=== PATIENT | male | born 1980 | race American Indian/Alaskan Native ===

== ENCOUNTER 2017-05-25 09:11 | Emergency (ER) | payer MEDICAID ==
[2017-05-25 09:22] VITALS: BP 157/96
--- NOTE | 2017-05-25 09:48 | Emergency Department Report ---
ED Psych HPI - General Chief Complaint: Psych Stated Complaint: EXCESSIVE SWEATING Time Seen by Provider: 05/25/17 09:46 Source: patient Mode of arrival: Ambulatory - History of Present Illness Initial Comments: Patient is a 36-year-old male who presents with excessive sweating. Patient states that he was walking and he got really hot. He also states that he has been having some difficulty maintaining an erection. Patient's symptoms are worse with exertion and with elevated temperature outside. They are better with rest and cold temperatures. Onset of patient's symptoms was gradual. Patient denies having any suicidal or homicidal ideation. Patient admits to hearing voices but he states that he always hears voices. ED Review of Systems ROS: Stated complaint: EXCESSIVE SWEATING Other details as noted in HPI Constitutional: denies: chills, fever Eyes: denies: eye pain, eye discharge, vision change ENT: denies: ear pain, throat pain Respiratory: denies: cough, shortness of breath, wheezing Cardiovascular: denies: chest pain, palpitations Endocrine: no symptoms reported Gastrointestinal: denies: abdominal pain, nausea, diarrhea Genitourinary: denies: urgency, dysuria Musculoskeletal: denies: back pain, joint swelling, arthralgia Skin: denies: rash, lesions Neurological: denies: headache, weakness, paresthesias Psychiatric: denies: anxiety, depression, auditory hallucinations, suicidal thoughts Hematological/Lymphatic: denies: easy bleeding, easy bruising ED Past Medical Hx - Past Medical History Previous Medical History?: Yes Hx Hypertension: Yes Additional medical history: Pt is poor historian. - Surgical History Past Surgical History?: No ED Physical Exam - General Limitations: No Limitations, Other General appearance: alert, in no apparent distress - Head Head exam: Present: atraumatic, normocephalic - Eye Eye exam: Present: normal appearance - ENT ENT exam: Present: mucous membranes moist - Neck Neck exam: Present: normal inspection - Respiratory Respiratory exam: Present: normal lung sounds bilaterally. Absent: respiratory distress - Cardiovascular Cardiovascular Exam: Present: regular rate, normal rhythm. Absent: systolic murmur, diastolic murmur, rubs, gallop - GI/Abdominal GI/Abdominal exam: Present: soft, normal bowel sounds - Rectal Rectal exam: Present: deferred - Extremities Exam Extremities exam: Present: normal inspection - Back Exam Back exam: Present: normal inspection - Neurological Exam Neurological exam: Present: alert, oriented X3, CN II-XII intact - Psychiatric Psychiatric exam: Present: anxious, flat affect. Absent: homicidal ideation, suicidal ideation - Skin Skin exam: Present: warm, dry, intact, normal color. Absent: rash ED Course Vital Signs 05/25/17 09:16 Temperature 98.0 F Pulse Rate 95 H Respiratory 20 Rate Blood Pressure 157/96 O2 Sat by Pulse 100 Oximetry - Reevaluation(s) Reevaluation #1: 05/25/17 13:52 Reevaluated patient he states he is ED Medical Decision Making - Lab Data Result diagrams: 05/25/17 09:57 05/25/17 09:57 Lab Results 05/25/17 05/25/17 05/25/17 Range/Units 09:57 09:57 09:57 WBC 12.7 H (4.5-11.0) K/mm3 RBC 5.52 H (3.65-5.03) M/mm3 Hgb 17.6 H (11.8-15.2) gm/dl Hct 52.6 H (35.5-45.6) % MCV 95 H (84-94) fl MCH 32 (28-32) pg MCHC 33 (32-34) % RDW 15.0 (13.2-15.2) % Plt Count 228 (140-440) K/mm3 Lymph % (Auto) 17.4 (13.4-35.0) % [place] % (Auto) 8.1 H (0.0-7.3) % Eos % (Auto) 1.9 (0.0-4.3) % Baso % (Auto) 0.6 (0.0-1.8) % Lymph # 2.2 (1.2-5.4) K/mm3 [place] # 1.0 H (0.0-0.8) K/mm3 Eos # 0.2 (0.0-0.4) K/mm3 Baso # 0.1 (0.0-0.1) K/mm3 Seg Neutrophils % 72.0 H (40.0-70.0) % Seg Neutrophils # 9.1 H (1.8-7.7) K/mm3 Sodium 142 (137-145) mmol/L Potassium 4.1 (3.6-5.0) mmol/L Chloride 103.0 (98-107) mmol/L Carbon Dioxide 28 (22-30) mmol/L Anion Gap 15 mmol/L BUN 7 L (9-20) mg/dL Creatinine 0.6 L (0.8-1.5) mg/dL Estimated GFR > 60 ml/min BUN/Creatinine Ratio 11.66 % Glucose 99 (75-100) mg/dL Calcium 9.5 (8.4-10.2) mg/dL Total Bilirubin 0.80 (0.1-1.2) mg/dL AST 17 (5-40) units/L ALT 9 (7-56) units/L Alkaline Phosphatase 93 (35-129) units/L Total Protein 8.2 (6.3-8.2) g/dL Albumin 4.3 (3.9-5) g/dL Albumin/Globulin Ratio 1.1 % TSH 0.673 (0.270-4.200) mlU/mL Urine Color (Yellow) Urine Turbidity (Clear) Urine pH (5.0-7.0) Ur Specific [place] (1.003-1.030) Urine Protein (Negative) mg/dL Urine Glucose (UA) (Negative) mg/dL Urine Ketones (Negative) mg/dL Urine Blood (Negative) Urine Nitrite (Negative) Urine Bilirubin (Negative) Urine Urobilinogen (<2.0) mg/dL Ur Leukocyte Esterase (Negative) Urine WBC (Auto) (0.0-6.0) /HPF Urine RBC (Auto) (0.0-6.0) /HPF U Epithel Cells (Auto) (0-13.0) /HPF Urine Bacteria (Auto) (Negative) /HPF Urine Mucus /HPF Salicylates (2.8-20.0) mg/dL Urine Opiates Screen Urine Methadone Screen Acetaminophen (10.0-30.0) ug/mL Ur Barbiturates Screen Ur Phencyclidine Scrn Ur Amphetamines Screen U Benzodiazepines Scrn Urine Cocaine Screen U Marijuana (THC) Screen Drugs of Abuse Note Plasma/Serum Alcohol (0-0.07) gm% 05/25/17 05/25/17 05/25/17 Range/Units 09:57 09:57 09:57 WBC (4.5-11.0) K/mm3 RBC (3.65-5.03) M/mm3 Hgb (11.8-15.2) gm/dl Hct (35.5-45.6) % MCV (84-94) fl MCH (28-32) pg MCHC (32-34) % RDW (13.2-15.2) % Plt Count (140-440) K/mm3 Lymph % (Auto) (13.4-35.0) % [place] % (Auto) (0.0-7.3) % Eos % (Auto) (0.0-4.3) % Baso % (Auto) (0.0-1.8) % Lymph # (1.2-5.4) K/mm3 [place] # (0.0-0.8) K/mm3 Eos # (0.0-0.4) K/mm3 Baso # (0.0-0.1) K/mm3 Seg Neutrophils % (40.0-70.0) % Seg Neutrophils # (1.8-7.7) K/mm3 Sodium (137-145) mmol/L Potassium (3.6-5.0) mmol/L Chloride (98-107) mmol/L Carbon Dioxide (22-30) mmol/L Anion Gap mmol/L BUN (9-20) mg/dL Creatinine (0.8-1.5) mg/dL Estimated GFR ml/min BUN/Creatinine Ratio % Glucose (75-100) mg/dL Calcium (8.4-10.2) mg/dL Total Bilirubin (0.1-1.2) mg/dL AST (5-40) units/L ALT (7-56) units/L Alkaline Phosphatase (35-129) units/L Total Protein (6.3-8.2) g/dL Albumin (3.9-5) g/dL Albumin/Globulin Ratio % TSH (0.270-4.200) mlU/mL Urine Color (Yellow) Urine Turbidity (Clear) Urine pH (5.0-7.0) Ur Specific [place] (1.003-1.030) Urine Protein (Negative) mg/dL Urine Glucose (UA) (Negative) mg/dL Urine Ketones (Negative) mg/dL Urine Blood (Negative) Urine Nitrite (Negative) Urine Bilirubin (Negative) Urine Urobilinogen (<2.0) mg/dL Ur Leukocyte Esterase (Negative) Urine WBC (Auto) (0.0-6.0) /HPF Urine RBC (Auto) (0.0-6.0) /HPF U Epithel Cells (Auto) (0-13.0) /HPF Urine Bacteria (Auto) (Negative) /HPF Urine Mucus /HPF Salicylates < 0.3 L (2.8-20.0) mg/dL Urine Opiates Screen Urine Methadone Screen Acetaminophen < 15.0 (10.0-30.0) ug/mL Ur Barbiturates Screen Ur Phencyclidine Scrn Ur Amphetamines Screen U Benzodiazepines Scrn Urine Cocaine Screen U Marijuana (THC) Screen Drugs of Abuse Note Plasma/Serum Alcohol < 0.01 (0-0.07) gm% 05/25/17 05/25/17 Range/Units 10:04 10:04 WBC (4.5-11.0) K/mm3 RBC (3.65-5.03) M/mm3 Hgb (11.8-15.2) gm/dl Hct (35.5-45.6) % MCV (84-94) fl MCH (28-32) pg MCHC (32-34) % RDW (13.2-15.2) % Plt Count (140-440) K/mm3 Lymph % (Auto) (13.4-35.0) % [place] % (Auto) (0.0-7.3) % Eos % (Auto) (0.0-4.3) % Baso % (Auto) (0.0-1.8) % Lymph # (1.2-5.4) K/mm3 [place] # (0.0-0.8) K/mm3 Eos # (0.0-0.4) K/mm3 Baso # (0.0-0.1) K/mm3 Seg Neutrophils % (40.0-70.0) % Seg Neutrophils # (1.8-7.7) K/mm3 Sodium (137-145) mmol/L Potassium (3.6-5.0) mmol/L Chloride (98-107) mmol/L Carbon Dioxide (22-30) mmol/L Anion Gap mmol/L BUN (9-20) mg/dL Creatinine (0.8-1.5) mg/dL Estimated GFR ml/min BUN/Creatinine Ratio % Glucose (75-100) mg/dL Calcium (8.4-10.2) mg/dL Total Bilirubin (0.1-1.2) mg/dL AST (5-40) units/L ALT (7-56) units/L Alkaline Phosphatase (35-129) units/L Total Protein (6.3-8.2) g/dL Albumin (3.9-5) g/dL Albumin/Globulin Ratio % TSH (0.270-4.200) mlU/mL Urine Color Yellow (Yellow) Urine Turbidity Clear (Clear) Urine pH 6.0 (5.0-7.0) Ur Specific [place] 1.019 (1.003-1.030) Urine Protein <15 mg/dl (Negative) mg/dL Urine Glucose (UA) Neg (Negative) mg/dL Urine Ketones Tr (Negative) mg/dL Urine Blood Neg (Negative) Urine Nitrite Neg (Negative) Urine Bilirubin Neg (Negative) Urine Urobilinogen 2.0 (<2.0) mg/dL Ur Leukocyte Esterase Neg (Negative) Urine WBC (Auto) 2.0 (0.0-6.0) /HPF Urine RBC (Auto) 4.0 (0.0-6.0) /HPF U Epithel Cells (Auto) < 1.0 (0-13.0) /HPF Urine Bacteria (Auto) 1+ (Negative) /HPF Urine Mucus 3+ /HPF Salicylates (2.8-20.0) mg/dL Urine Opiates Screen Presumptive negative Urine Methadone Screen Presumptive negative Acetaminophen (10.0-30.0) ug/mL Ur Barbiturates Screen Presumptive negative Ur Phencyclidine Scrn Presumptive negative Ur Amphetamines Screen Presumptive negative U Benzodiazepines Scrn Presumptive negative Urine Cocaine Screen Presumptive negative U Marijuana (THC) Screen Presumptive negative Drugs of Abuse Note Disclamer Plasma/Serum Alcohol (0-0.07) gm% - Medical Decision Making Chief medical diagnosis: Anxiety Differential medical diagnosis: Metabolic abnormality, hyperhidrosis I will get CBC, CMP, ethanol and urine drug screen. Patient alone and be evaluated by mental health worker as he is not having any suicidal or homicidal ideation. I will send patient home. Critical care attestation.: If time is entered above; I have spent that time in minutes in the direct care of this critically ill patient, excluding procedure time. ED Disposition Clinical Impression: Hyperhidrosis Disposition: DC-01 TO HOME OR SELFCARE Is pt being admited?: No Does the pt Need Aspirin: No Condition: Stable Instructions: Fatigue (ED), Heat Exhaustion (ED) Referrals: PRIMARY CARE, [Primary Care Provider] - 3-5 Days Time of Disposition: 13:59
[2017-05-25 10:14] LABS: Urine Drugs of Abuse Note Disclamer
[2017-05-25 10:20] LABS: Basophils % (Auto) 0.6 % (0.0-1.8); Eosinophils % (Auto) 1.9 % (0.0-4.3); Hematocrit 52.6 % (35.5-45.6); Hemoglobin 17.6 gm/dl (11.8-15.2); Mean Corpuscular HGB Conc 33 % (32-34); Mean Corpuscular Hemoglobin 32 pg (28-32); Mean Corpuscular Volume 95 fl (84-94); Platelet Count 228 K/mm3 (140-440); Red Blood Count 5.52 M/mm3 (3.65-5.03); White Blood Count 12.7 K/mm3 (4.5-11.0)
[2017-05-25 10:22] LABS: Bacteria,Urine 1+ /HPF (Negative); Bilirubin,Urine NEG (Negative); Blood,Urine NEG (Negative); Ketones,Urine TR mg/dL (Negative); Leukocyte Esterase,Urine NEG (Negative); Mucus,Urine 3+ /HPF; Nitrite,Urine NEG (Negative); Protein,Urine <15 mg/dL mg/dL (Negative)
[2017-05-25 10:36] LABS: Alanine Aminotransferase 9 units/L (7-56); Albumin 4.3 g/dL (3.9-5); Albumin/Globulin Ratio 1.1 %; Alkaline Phosphatase 93 units/L (35-129); Anion Gap 15 mmol/L; BUN/Creatinine Ratio 11.66; Blood Urea Nitrogen 7 mg/dL (9-20); Calcium 9.5 mg/dL (8.4-10.2); Carbon Dioxide 28 mmol/L (22-30); Glucose 99 mg/dL (75-100); Potassium 4.1 mmol/L (3.6-5.0); Sodium 142 mmol/L (137-145); Total Protein 8.2 g/dL (6.3-8.2)
== END 2017-05-25 14:46 | disposition home or self-care (01) ==
LOC: EEVIPCON 09:11 → ED 09:11
DX: R61 Generalized hyperhidrosis (principal); I10 Essential (primary) hypertension
CPT/HCPCS: 36415; 80053; 80307; 81001; 84443; 85025; 99283; G0480; 80320

== ENCOUNTER 2021-03-19 15:06 | Emergency (ER) | payer MEDICAID ==
[2021-03-19 15:37] VITALS: BP 123/81
--- NOTE | 2021-03-20 17:58 | Electrocardiograph Report ---
[facility] Test Date: 2021-03-19 Test Time: 15:32:41 Pat Name: RICHARD SANDERS Department: Room: Gender: M [employer]: JOSE LUIS : 1980 Requested By: VANESSA QUEVEDO Order Number: [id number] Reading MD: Amadeo Maurice Measurements Intervals [place] Rate: 78 P: 54 GA: 176 QRS: 17 QRSD: 73 T: 28 QT: 367 QTc: 419 Interpretive Statements Sinus rhythm Low voltage, precordial leads No previous ECG available for comparison Electronically Signed On 03-20-2021 17:58:15 EDT by Amadeo Maurice
== END 2021-03-19 19:30 | disposition left against medical advice (07) ==
LOC: ED 15:06
DX: R07.9 Chest pain, unspecified (principal); Z53.21 Procedure and treatment not carried out due to patient leaving prior to being seen by health care provider
CPT/HCPCS: 93005

== ENCOUNTER 2021-08-28 15:42 | Emergency (ER) | payer MEDICAID ==
[2021-08-28 18:04] VITALS: BP 161/101
== END 2021-08-29 03:17 | disposition left against medical advice (07) ==
LOC: ED 15:42
DX: M79.606 Pain in leg, unspecified (principal); Z53.21 Procedure and treatment not carried out due to patient leaving prior to being seen by health care provider

== ENCOUNTER 2022-05-22 19:49 | Emergency (ER) | payer MEDICAID ==
[2022-05-23] MEDS ORDERED: NORepinephrine/NS 8 MG-250 ML 8 MG/250 ML INFUS..BTL IV ONE (02:10)
--- NOTE | 2022-05-23 02:37 | XRay Report ---
LEFT XR humerus 2+V LT INDICATION / CLINICAL INFORMATION: left upper arm pain s/p fx COMPARISON: None available. TECHNIQUE: AP and lateral views of the left humerus were acquired. FINDINGS: A transverse minimally comminuted fracture of the mid left humeral diaphysis is present with bony madeleine taqueria formation surrounding the fracture. No pathologic lesions. Approximately 30 degrees of varus angu lation is present. IMPRESSION: 1. A healing fracture of the mid left humeral diaphysis is present. Signer Name: Augusto Valera II, MD Signed: 05/23/2022 2:33 AM Workstation Name: [id number]
--- NOTE | 2022-05-23 03:36 | Emergency Department Report ---
ED General Adult HPI - General Chief complaint: Extremity Injury, Upper Stated complaint: LT ARM PAIN Time Seen by Provider: 05/23/22 01:57 Source: patient, EMS Mode of arrival: Ambulatory Limitations: No Limitations - History of Present Illness Initial comments: Patient 41-year-old male with history of depression and bipolar disease status post left humerus fracture 5 weeks ago. Patient states Velcro on left coaptation splint wore out and he needs a new sling. Patient states he was treated [facility] status post fall injury. Patient denies new fall injury or trauma. However states intermittent left upper arm pain at 5/10. Pain exacerbated by movement and palpation. Pain is relieved by nothing tried. There are no abrasions lacerations or bleeding. - Related Data Previous Rx's Medication Instructions Recorded Last Taken Type Acetaminophen/Codeine [Tylenol 1 tab PO Q6H PRN #12 tab 05/23/22 Unknown Rx /Codeine # 3 tab] Allergies Allergy/AdvReac Type Severity Reaction Status Date / Time No Known Allergies Allergy Verified 03/19/21 15:31 ED Review of Systems ROS: Stated complaint: LT ARM PAIN Other details as noted in HPI Constitutional: denies: chills, fever Eyes: denies: eye pain, eye discharge, vision change ENT: denies: ear pain, throat pain Respiratory: denies: cough, shortness of breath, wheezing Cardiovascular: denies: chest pain, palpitations Endocrine: no symptoms reported Gastrointestinal: denies: abdominal pain, nausea, diarrhea Genitourinary: denies: urgency, dysuria Musculoskeletal: other Skin: denies: rash, lesions Neurological: denies: headache, weakness, paresthesias Psychiatric: denies: anxiety, depression Hematological/Lymphatic: denies: easy bleeding, easy bruising ED Past Medical Hx - Past Medical History Hx Hypertension: Yes Additional medical history: Pt is poor historian. bipolar. paranoid schziophrenia. intermitten explosive behavior. anxiety. repitition of of terroristic threats - Social History Smoking Status: Current Every Day Smoker Substance Use Type: None - Medications Home Medications: Home Medications Medication Instructions Recorded Confirmed Last Taken Type Acetaminophen/Codeine [Tylenol 1 tab PO Q6H PRN #12 tab 05/23/22 Unknown Rx /Codeine # 3 tab] ED Physical Exam - General Limitations: No Limitations General appearance: alert, in no apparent distress - Head Head exam: Present: normocephalic, normal inspection - Eye Eye exam: Present: PERRL, EOMI Pupils: Present: normal accommodation - ENT ENT exam: Present: mucous membranes moist - Neck Neck exam: Present: normal inspection, full ROM. Absent: tenderness, lymphadenopathy - Respiratory Respiratory exam: Present: normal lung sounds bilaterally. Absent: respiratory distress, wheezes - Cardiovascular Cardiovascular Exam: Present: regular rate, normal rhythm, normal heart sounds. Absent: systolic murmur, diastolic murmur, rubs, gallop - GI/Abdominal GI/Abdominal exam: Present: soft, normal bowel sounds. 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 Absent: tenderness Forearm Wrist exam: Present: full ROM. Absent: tenderness Hand Wrist exam: Present: normal inspection, full ROM. Absent: tenderness Neuro motor exam: Present: wrist extension intact, thumb opposition intact, thumb IP flexion intact, thumb adduction intact, fingers 2-5 abduction intact Neurosensory exam: Present: radial nerve intact Vascular: Present: normal capillary refill - Back Exam Back exam: Present: normal inspection, full ROM. Absent: paraspinal tenderness, vertebral tenderness - Neurological Exam Neurological exam: Present: alert, oriented X3, CN II-XII intact, reflexes normal. Absent: motor sensory deficit - Expanded Neurological Exam Expanded Patient oriented to: Present: person, place, time Speech: Present: fluid speech Motor strength exam: RUE: 5, LUE: 5, RLE: 5, LLE: 5 DTR: bicep (R): 1+, bicep (L): 1+ Best Eye Response (Alexandra): (4) open spontaneously Best Motor Response (Alexandra): (6) obeys commands Best Verbal Response (Alexandra): (5) oriented Somis Total: 15 - Psychiatric Psychiatric exam: Present: normal affect, normal mood - Skin Skin exam: Present: warm, dry, intact, normal color. Absent: rash ED Course Vital Signs 05/22/22 05/23/22 20:28 04:53 Temperature 98 F 98 F Pulse Rate 90 85 Respiratory 16 16 Rate Blood Pressure 154/90 140/86 [Right] O2 Sat by Pulse 96 97 Oximetry - Procedure Description Procedures done: Palpitations splint left upper extremity splint check completed at this time spacing is appropriate. Distal pulses remain intact. Sling and swath noted intact pt demonstrate safe used of same. Patient will follow-up with orthopedics in 2 to 3 days. Patient verbalized agreement and understanding with discharge plan. Patient DC'd home in stable condition at this time. ED Medical Decision Making - Radiology Data Radiology results: report reviewed, image reviewed interpreted by me: LEFT XR humerus 2+V LT INDICATION / CLINICAL INFORMATION: left upper arm pain s/p fx COMPARISON: None available. TECHNIQUE: AP and lateral views of the left humerus were acquired. FINDINGS: A transverse minimally comminuted fracture of the mid left humeral diaphysis is present with bony callus formation surrounding the fracture. No pathologic lesions. Approximately 30 degrees of varus angulation is present. IMPRESSION: 1. A healing fracture of the mid left humeral diaphysis is present. Signer Name: Poornima Valera II, MD Signed: 05/23/2022 2:33 AM Workstation Name: [id number] Transcribed By: MERARI Dictated By: POORNIMA VALERA II, MD Electronically Authenticated By: POORNIMA VALERA II, MD Signed Date/Time: 05/23/22232 DD/ 0 TD/TT: Print Cancel LEFT XR humerus 2+V LT INDICATION / CLINICAL INFORMATION: left upper arm pain s/p fx COMPARISON: None available. TECHNIQUE: AP and lateral views of the left humerus were acquired. FINDINGS: A transverse minimally comminuted fracture of the mid left humeral diaphysis is present with bony callus formation surrounding the fracture. No pathologic lesions. Approximately 30 degrees of varus angulation is present. IMPRESSION: 1. A healing fracture of the mid left humeral diaphysis is present. Signer Name: Poornima Valera II, MD Signed: 05/23/2022 2:33 AM Workstation Name: [id number] Transcribed By: MERARI Dictated By: POORNIMA VALERA II, MD Electronically Authenticated By: POORNIMA VALERA II, MD Signed Date/Time: 05/23/22232 DD/ 0 TD/TT: - Medical Decision Making Healing midshaft humerus fracture plan replace palpitations splint left upper arm, shoulder immobilizer, follow-up with orthopedics at [facility] in 2 to 3 days. NSAIDs as needed pain. Patient verbalized agreement and understanding with same, splint check will be completed prior to discharge. Critical care attestation.: If time is entered above; I have spent that time in minutes in the direct care of this critically ill patient, excluding procedure time. ED Disposition Clinical Impression: Closed fracture of medial condyle of humerus Qualifiers: Encounter type: subsequent encounter Fracture alignment: nondisplaced Laterality: left Fracture healing: with delayed healing Qualified Code(s): S42.465G - Nondisplaced fracture of medial condyle of left humerus, subsequent encounter for fracture with delayed healing Disposition: HOME / SELF CARE / HOMELESS Is pt being admited?: No Does the pt Need Aspirin: No Condition: Stable Instructions: Cast or Splint Care, Adult, [id number] Additional Instructions: Take all medications as prescribed, follow-up with your orthopedic surgeon in [facility] in 1 to 2 days. Use splint and sling as directed. Return to emergency department should symptoms worsen. Prescriptions: Acetaminophen/Codeine [Tylenol /Codeine # 3 tab] 1 tab PO Q6H PRN #12 tab PRN Reason: pain Referrals: BREA VARGHESE MD [Staff Physician] - 3-5 Days Time of Disposition: 05:11
[2022-05-23 04:56] VITALS: BP 140/86
== END 2022-05-23 04:54 | disposition home or self-care (01) ==
LOC: ED 19:49
DX: S42.46 Fracture of medial condyle of humerus (principal); F17.200 Nicotine dependence, unspecified, uncomplicated; I10 Essential (primary) hypertension; F31.9 Bipolar disorder, unspecified
CPT/HCPCS: 99283; J2354